=== PATIENT | male | born 1965 | race Caucasian/White ===

== ENCOUNTER 2025-06-27 14:31 | Outpatient (CLI) | payer OTHER, SELFPAY ==
--- NOTE | 2025-06-27 14:30 | CRLHL7_ITS ---
For Patients: As a result of the Century Cures Act, medical imaging exams and procedure reports are released immediately into your electronic medical record. You may view this report before your referring provider. If you have questions, please contact your health care provider. INDICATION: Low back pain. COMPARISON: 09/29/2019. Technique Sagittal T1, T2, and STIR sequences. Axial T1 and T2 weighted sequences. FINDINGS: Normal vertebral body alignment. No fractures. No vertebral body loss of height. No spondylolisthesis. No ligamentous injury. No suspicious osseous lesions. Normal conus terminates at T12-L1. Mature postop changes diskectomy interbody fusion L4-5. Laminectomy and posterior fusion hardware. T12-L1: No spinal canal or neural foraminal narrowing. L1-2: Disc degeneration. Posterior disc bulge. Mild narrowing of spinal canal. No neural foraminal narrowing. L2-3: Disc degeneration posted disc bulge. No narrowing of spinal canal. No neural foraminal narrowing. Mild Modic type 1 endplate changes. L3-4: Disc degeneration. Posterior disc bulge. Mild narrowing of spinal canal. No neural foraminal narrowing. Mild facet arthropathy. L4-5: Mature postoperative changes. No narrowing of the spinal canal. No neural foraminal narrowing. L5-S1: No narrowing of spinal canal. No impingement of the traversing S1 nerve roots. No neural foraminal narrowing. Degenerative changes of the SI joints. Bilateral renal cysts IMPRESSION: 1. Normal alignment. No fractures 2. Mature postoperative changes diskectomy and interbody fusion L4-5. 3. At L3-4, mild narrowing of the spinal canal 4. No spinal canal or neural foraminal narrowing at the remaining levels Dictated by Pravin Murillo MD @ 06/29/2025 8:47:41 AM (Electronically Signed)
== END 2025-06-27 14:32 | disposition home or self-care (01) ==
LOC: MRI 14:32
PROVIDERS: PCP Family Medicine; Visit Provider Nurse Anesthetist, Certified Registered
DX: M51.26 Other intervertebral disc displacement, lumbar region (principal)
CPT/HCPCS: 72148